=== PATIENT | male | born 1965 | race Caucasian/White ===

== ENCOUNTER 2021-02-06 12:37 | Outpatient (CLI) | payer BC, SELFPAY ==
--- NOTE | 2021-02-06 13:08 | XR_ITS ---
WS: [id number] Chest 2 views, 02/06/2021 Clinical Data: PRE SURG SCREEN/HX TOBACCO ABUSE Comparison: None. Findings: No nodules, masses or effusions are seen. The heart is normal. The pulmonary vascularity is not increased. No pneumonia or pneumothorax is seen. There is minimal patchy atelectasis at the left costophrenic angle. The diaphragms are flattened. XR/XR chest 2V* [id number] Impression: Hyperinflation.
--- NOTE | 2021-02-06 13:12 | ECG_ITS ---
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 Measurements Intervals [place] Rate: 87 P: 28 AR: 148 QRS: -25 QRSD: 86 T: 29 QT: 342 QTc: 414 Interpretive Statements SINUS RHYTHM INDETERMINATE AXIS No previous ECG available for comparison Electronically Signed On 02-07-2021 18:27:57 CDT by Omaira Avelar M.D. [email or web address]
== END 2021-02-06 12:38 | disposition home or self-care (01) ==
PROVIDERS: PCP Nurse Practitioner Family; Visit Provider Nurse Practitioner Family
DX: Z01.818 Encounter for other preprocedural examination (principal); Z87.891 Personal history of nicotine dependence
CPT/HCPCS: 71046; 93005